=== PATIENT | male | born 1980 | race Caucasian/White ===

== ENCOUNTER 2025-02-19 11:57 | Emergency (ER) | payer MEDICAID, SELFPAY ==
[2025-02-19 11:59] VITALS: BMI 23.4
--- NOTE | 2025-02-19 12:23 | PC.NURSE ---
LATE NOTE: PT PLACED ON A C-COLLAR AT 1200PM DUE TO NECK PAIN AND THE PT FALLING OF A 12FT TREE
[2025-02-19 12:27] VITALS: BP 126/85; PULSE 101; RESP 18; TEMP 36.8; O2SAT 98
--- NOTE | 2025-02-19 12:33 | XR_ITS ---
Examination: CT brain head without contrast. 2-D sagittal coronal reconstructions Date and time of exam: February 19, 2025, 1258 hours INDICATIONS: Ground-level fall today with injury to the head, head pain CTDI: vol (mGy): 49.3 DLP: (mGycm): 1107 Technique: Multiple CT axial sections of the brain have been obtained, 5 mm slice thickness. Contrast has not been administered. 2-D sagittal, coronal reconstructions have been obtained Low dose protocols were performed. One or more of the following dose reduction techniques were used; automated exposure control, adjustment of the mA and/or KV according to patient size, use of iterative reconstruction technique. Findings: No significant ventricular enlargement. Intra-axial or extra-axial hemorrhage density is not seen. No mass effect or midline shift Basal cisterns are not remarkable. Fourth ventricle is midline. Cranial vault intact. Age-indeterminate infarct in the left cerebellar hemisphere, image 34 Impression: Negative for acute hemorrhage, mass effect or midline shift Age-indeterminate infarct in the left cerebellar hemisphere, nonhemorrhagic, clinical correlation advised
--- NOTE | 2025-02-19 12:33 | XR_ITS ---
Examination: CT cervical spine without contrast 2-D sagittal reconstructions 2-D coronal reconstructions 3-D reconstructions. Exam date and time: February 19, 2025, 12:58 p.m. INDICATIONS: Patient fell today with injury to the neck, neck pain CTDI:vol (mGy) 15 DLP: (mGycm) 413 Technique: Multiple 2 mm axial sections of the cervical spine have been obtained. The coronal and sagittal reconstructions have been obtained. 3-D reconstructions have been obtained. Low dose protocols were performed. One or more of the following dose reduction techniques were used; automated exposure control, adjustment of the mA and/or KV according to patient size, use of iterative reconstruction technique. Findings: Axial sections demonstrate intact base of the skull. C1 exhibit satisfactory relationship to the odontoid. No acute cervical vertebral body fracture seen. Alignment posterior spinous processes satisfactory. Impression: No acute cervical fracture.
--- NOTE | 2025-02-19 12:33 | XR_ITS ---
Examination: CT chest, without intravenous contrast. CT abdomen, without intravenous contrast. CT pelvis, without intravenous contrast. 2-D sagittal and coronal reconstructions. 3-D reconstructions. Date and time of exam: February 19, 2025, 1306 hours INDICATIONS: Patient fell today with injury to the chest and abdomen, chest pain abdomen pain CTDI vol (mgy) 6.88 DLP (MGycm) 514 Technique: Multiple CT images, 3.0 mm slice thickness, obtained chest, abdomen, pelvis, with the high-resolution 64 slice scanner.. Sagittal and coronal 2-D reconstructions are obtained. 3-D reconstructions Low dose protocols were performed. One or more of the following dose reduction techniques were used; automated exposure control, adjustment of the mA and/or KV according to patient size, use of iterative reconstruction technique. Findings: Thoracic aorta pulmonary arteries intact No hemopericardium No pneumothorax pulmonary contusion or hemothorax Manubrium and body of the sternum intact No thoracic lumbar or sacral fracture depicted Ribs appear intact, visualization limited secondary to patient motion No liver splenic or renal laceration No perinephric hematoma Negative for pneumoperitoneum Aorta is intact no free blood in the abdomen Normal appendix Urinary bladder intact No prostatomegaly Iliac bones acetabular regions and hips appear intact IMPRESSION: Thoracic aorta pulmonary arteries intact No hemopericardium, pulmonary contusion, pneumothorax or hemothorax No abdominal parenchymal laceration Abdominal aorta intact No free blood in the abdomen or pelvis Osseous structures appear intact
--- NOTE | 2025-02-19 12:34 | EDNOTE_ITS ---
ED Fall Injury RME/HPI General Chief Complaint: Fall Stated Complaint: LONG TERM CHECK Time Seen by Provider: 02/19/25 12:28 Arrival date/time: 02/19/25 11:57 44-year-old male patient was brought in by law enforcement for shelter clearance. Apparently patient fell from a tree about 12 feet high tried to escape from the police. Patient is now complaining of headache neck pain low back pain severity moderate. Patient is ambulatory according to EMS. Patient denies any LOC no nausea no vomiting denies any chest pain or abdominal pain. Moving all extremity without any limitation. Patient is not taking any blood thinner. Related Data Home Medications ?Medication ?Instructions ?Recorded ?Confirmed Hydrocodone/Acetaminophen * (NORCO 1 tab PO Q4H PRN #0 tabs 03/24/17 10/325 *) ibuprofen 800 mg tablet 800 mg PO Q8HR #0 tabs 03/24 Allergies Allergy/AdvReac Type Severity Reaction Status Date / Time NKA* Allergy Uncoded 03/24/17 13:33 Review of Systems Review of Systems Narrative Review of Systems: Review of system reviewed and within normal limits except mentioned in HPI ED Exam Narrative Physical exam: VITAL SIGNS: Reviewed. GENERAL APPEARANCE: Alert and interactive, follows commands, no acute distress, HEAD AND FACE: Non-traumatic. ENT: PERRL, pink conjunctivitis, eyelid no trauma, Mucous membrane moist. NECK: Supple, nontender, no nuchal rigidity. CHEST: No tenderness, no crepitus, no paradoxical movement, no retractions. LUNGS: Clear, well ventilated, symmetric, no rales, no wheezing, no ronchi, no stridor, good breath sounds bilaterally. HEART: Regular rate, regular rhythm, no murmur, no gallops. ABDOMEN: Soft, positive bowel sounds, nondistended, no guarding, nontender, no rebound, no masses, RECTAL: Deferred. GENITAL: Deferred. NEUROLOGICAL: Gross motor function intact sensory function intact, Appropriate for age. MUSCULOSKELETAL: low back tenderness, full range of motion. EXTREMITIES: Nontender, full range of motion. SKIN: Color pink, dry, no rash, no lacerations, no abrasions, no contusions. LYMPHATICS: Deferred. Course Quality Measures none Orders Category Date Time Status CT cervical spine wo con Stat Exams 02/19/25 12:[address] chest abdomen pelvis wo Stat Exams 02/19/25 12:[address] head/brain wo con Stat Exams 02/19/25 12:33 Completed Morphine* Inj Med 02/19/25 12:33 Discontinued 4 mg IM X1 ONE Ondansetron Odt [Zofran Odt] Med 02/19/25 12:33 Discontinued 4 mg PO X1 ONE Vital Signs Vital signs: Vital Signs Temperature 98.2 F 02/19/25 12:27 Pulse Rate 101 H 02/19/25 12:27 Respiratory Rate 18 02/19/25 12:27 Blood Pressure 126/85 H 02/19/25 12:27 Pulse Oximetry (%) 98 02/19/25 12:27 Oxygen Delivery Method Room Air 02/19/25 12:27 Fall MDM Narrative MDM Narrative:: 44-year-old male patient was brought in by law enforcement for shelter clearance. Apparently patient fell from a tree about 12 feet high tried to escape from the police. Patient is now complaining of headache neck pain low back pain severity moderate. Patient is ambulatory according to EMS. Patient denies any LOC no nausea no vomiting denies any chest pain or abdominal pain. Moving all extremity without any limitation. Patient is not taking any blood thinner. CT scan of the head showed age-indeterminate possible infarct CT scan of the cervical spine came back unremarkable CT scan of the chest abdomen pelvis also came back unremarkable. Results discussed with the patient patient was advised to follow-up with PCP for repeat CT scan of the head once the patient get out of shelter. Patient is medically cleared for incarceration. Stable vital signs prior to discharge Was noted to be ambulatory. Patient data External records reviewed:: None Clinical information provided by:: patient and law enforcement Social determinants that could affect healthcare access:: none Patient has the following chronic illnesses:: Plan How is presenting disease/condition affected by chronic disease/condition?: no chronic disease Evaluation data The following diagnostics were reviewed and interpreted by me:: radiology exam(s) Lab and/or radiology exams considered but not ordered:: None Interpretation Summary: See above Medications / Prescriptions Medications or Prescriptions considered but not ordered:: None Medication administrations:: Medication Administration History Discontinued Medications Morphine Sulfate (Morphine Sulf Inj 4 Mg/Ml Vial) 4 mg IM X1 ONE Stop: 02/19/25 12:34 Last Admin: 02/19/25 13:42 Dose: Not Given Documented By: DO Non-Admin Reason: Patient Refused Ondansetron HCl (Ondansetron Odt 4 Mg Tabrap) 4 mg PO X1 ONE; Protocol Stop: 02/19/25 12:34 Last Admin: 02/19/25 13:42 Dose: Not Given Documented By: DO Non-Admin Reason: Patient Refused Zofran morphine Consultations Consultation(s) initiated? (list below): No Diagnosis Fall Differential Diagnosis: other (Fall, medical clearance, back pain) Most likely diagnosis given after review of the tests above:: Fall, medical clearance for incarceration, back pain Admission Indicated Admission indicated?: not indicated Admission Request Was there a request for admission?: No Disposition Plan Disposition Plan: Discharge Discharge Attestation Discharge Attestation: Patient condition: Stable Discharge Plan Plan Patient Disposition: HOME (Self Care) Discharge Disposition comment: Stable Prescriptions/Referrals Prescriptions/Med Rec: No Action ibuprofen 800 MG tablet 800 mg PO Q8HR Qty: 0 Hydrocodone/Acetaminophen * (NORCO 10/325 *) 1 TAB tablet 1 tab PO Q4H PRNQty: 0 Referrals: No Primary/Family,Physician [Primary Care Provider] - In 1 week Problem List Clinical Impression: Medical clearance for incarceration, Fall Patient/Caregiver Discharge Instructions Discharge Activity: activity as tolerated Education Materials: Reducing Your Health Risks ... Additional Instructions: Thank you for the opportunity for serving you today. You are stable for discharged . You are advised to: Follow-up with your PCP in 1 to 2 days once you get out of shelter for repeat CT scan your head, to the CT scan showed old infarct. Return to ED for worsening of symptoms Increase oral fluids Take over the counter Tylenol Motrin as needed for pain Print Language: Uzbek Stand Alone Forms: Ailyn Award Info., Patient Portal Info Letter PA/MENTAL HEALTH ORDERLY Supervising Physician GENET/MENTAL HEALTH ORDERLY Supervising Physician: MD Maria Eugenia
[2025-02-19 14:02] VITALS: BP 134/88; PULSE 99; RESP 18; TEMP 36.6; O2SAT 99
== END 2025-02-19 16:00 ==
PROVIDERS: Emergency Provider Family Medicine
DX: Z02.89 Encounter for other administrative examinations (principal); S09.90XA Unspecified injury of head, initial encounter; S19.9XXA Unspecified injury of neck, initial encounter; S29.9XXA Unspecified injury of thorax, initial encounter; S39.91XA Unspecified injury of abdomen, initial encounter; M54.50 Low back pain, unspecified; W14.XXXA Fall from tree, initial encounter
CPT/HCPCS: 70450; 71250; 72125; 74176; 99282